=== PATIENT | female | born 1945 | race African-American/Black ===

== ENCOUNTER 2019-10-02 00:50 | Day surgery (SDC) | payer OTHER, MEDICARE, SELFPAY ==
[2019-09-22 15:47] VITALS: BMI 28.3
[2019-10-02] VITALS (9 sets, daily range): BP systolic 134–164; BP diastolic 67–86; PULSE 50–83; RESP 14–20; TEMP 36.1; O2SAT 95–100; BMI 33.5
--- NOTE | 2019-10-02 06:47 | WPDANESEPPF ---
Anes - Initial Pre Proc Eval Procedure: Operation Date: 10/02/19 07:30 Proposed Procedures p Urethral Sling - Quintin Zelaya MD Date/Time: 10/02/19 06:47 Surgeon: Quintin Zelaya MD Pre Op Diagnosis: Stress Incontinence Patient Data Age: 74 Gender: F Height: 5 ft 5 in Weight: 77.15 kg Allergies Allergy/AdvReac Type Severity Reaction Status Date / Time Sulfa (Sulfonamide Allergy Unknown Hives Verified 10/02/19 06:25 Antibiotics) Home Medications Medication Instructions Recorded Confirmed Type amlodipine 2.5 mg PO DAILY 09/22/19 10/02/19 History aspirin [Adult Low Dose Aspirin] 81 mg PO DAILY 09/22/19 10/02/19 History glipizide 2.5 mg PO DAILY 09/22/19 10/02/19 History insulin glargine [Lantus U-100 30 unit SUBCUT HS 09/22/19 10/02/19 History Insulin] metformin 500 mg PO DAILY 09/22/19 10/02/19 History sertraline [Zoloft] 100 mg PO HS 09/22/19 10/02/19 History trazodone 100 mg PO HS 09/22/19 10/02/19 History triamterene-hydrochlorothiazid 1 tablet PO QAM 09/22/19 10/02/19 History Patient hx anesthesia problems: none Family hx anesthesia problems: none PMFSH Past Medical History Medical History Depression Diabetes GERD (gastroesophageal reflux disease) Hypertension Overweight Anes - Eval Final PreProcedure Day of Procedure 10/02/19 06:47 Patient weight: overweight Heart: regular rate and rhythm Lungs: clear to auscultation Airway: Mallampati scale class II Neurological: alert and oriented Last oral intake: >/= 8 hours ASA classification: III Emergent: no Anesthetic plan: proceed Anesthesia type and monitoring: general GIVS and standard monitoring Informed Consent: The patient's anesthetic plan and its attendant risks and benefits were discussed with the patient/family/POA. Questions were solicited and answers provided to the satisfaction of the patient/family/POA.
[2019-10-02 07:03] LABS: Glucose Point of Care 180 (65-105)
[2019-10-02] MEDS: LACTATED RINGERS 1,000 ML 30 ML IV CONT ×2 (07:04→09:19)
--- NOTE | 2019-10-02 07:21 | WPDHPUPDATE1 ---
History and Physical Update Update Date/Time: 10/02/19 07:21 History and Physical has been reviewed, including an updated exam of the patient. There are NO changes in the patient's condition. Risks, benefits, and alternatives have been discussed and questions answered. Patient agrees to proceed with procedure.
[2019-10-02] MEDS: ceFAZolin 2 GM/D5W 50 ML 2 GM/50 ML BAG IVPB (08:02)
[2019-10-02] MEDS: BUPIVACAINE/EPINEPHRINE 0.25% 50 ML VIAL 20 ML INFILTRATE (08:22)
[2019-10-02 08:49] LABS: Glucose Point of Care 188 (65-105)
--- NOTE | 2019-10-02 10:18 | PM.PROC ---
Procedure Note - Detailed Date of procedure: 10/02/19 Pre-op diagnosis: Stress Incontinence Stress urinary incontinence Post-op diagnosis: same Procedure performed: Transobturator Mid-urethral sling Cystoscopy Description of procedure: This is a patient with confirmed stress urinary incontinence. She desires correction. She understands the risks of bleeding, infection, damage to the urinary tract, lack of cure of stress incontinence, recurrence of stress incontinence, postoperative voiding dysfunction including incontinence and retention, need for ancillary procedures to loosen remove the sling, postoperative voiding dysfunction including retention and overactive bladder, hip and leg pain, dyspareunia, mesh related complications including exposure and extrusion. She agrees to proceed. She understands it will not help overactive bladder symptoms if present. She was correctly identified and informed consent obtained. She is brought to the operating room. She was given appropriate anesthesia. She was placed in the dorsal lithotomy position. All pressure points were padded. She was given appropriate perioperative antibiotics and a time-out performed. A Merritt catheter is placed. I marked out the thigh incisions anesthetize the skin and made those incisions. I anesthetized the anterior vaginal wall over the mid urethra. I made a 1 cm incision. I dissected out laterally taking great care not to injure the urethra or the vaginal wall. Passed the helical trocars 1st on the left and then on the right from the thigh incision towards the vaginal incision. Sling was connected to the trocars and brought out through the thigh incision. I tensioned the sling appropriately. I cut and removed the plastic sheaths. I closed the incision with 2 0 Vicryl. I then performed cystoscopy. There was no surgical artifact or abnormalities inside the bladder. The urethra was normal without surgical artifact. I cut the excess sling material. I closed the incisions with glue. She was awakened and transferred to the PACU in stable condition. Implants: Mid urethral sling Surgeon: Quintin Zelaya MD Drains: No Packing: No Pathology: none sent Complications: No immediate complications Condition: stable Disposition: PACU
== END 2019-10-02 11:10 | disposition home or self-care (01) ==
PROVIDERS: Visit Provider Urology
PROC: (CPT 57288; principal; 2019-10-02 07:30)
DX: N39.3 Stress incontinence (female) (male) (principal); I10 Essential (primary) hypertension; E11.9 Type 2 diabetes mellitus without complications; K21.9 Gastro-esophageal reflux disease without esophagitis; F32.9 Major depressive disorder, single episode, unspecified; Z79.82 Long term (current) use of aspirin; Z79.84 Long term (current) use of oral hypoglycemic drugs; Z79.4 Long term (current) use of insulin
CPT/HCPCS: 57288; A9270; C1771; J0131; J0690; J2250; J2405; J2704; J3010; J7030; J7120